=== PATIENT | male | born 1940 | race Caucasian/White ===

== ENCOUNTER 2017-02-21 12:23 | Inpatient (IN) | payer OTHER, MEDICARE ==
[2017-02-21] MEDS ORDERED: Sodium Chloride 0.9% 1,000 ML IV ONE (12:40)
--- NOTE | 2017-02-21 12:46 | ED Physician Chart ---
ED Chief Complaint/HPI - Patient Information Date Seen:: 02/21/17 Time Seen:: 12:30 Chief Complaint:: Fever History of Present Illness:: onset x 2 days of fever, cough, and congestion; no report of H/As, neck pain, C/ P, SOB, Abd. Pain, A/N/V/D/c, chills, or urinary s/s Allergies:: Allergies Allergy/AdvReac Type Severity Reaction Status Date / Time No Known Allergies Allergy Verified 02/21/17 12:39 Historian:: Patient, EMS Review:: Nurse's Note Reviewed, EMS run form Reviewed, Transfer documents Reviewed ED Review of Systems - Review of Systems General/Constitutional: Fever, No chills, No weight loss, No weakness, No diaphoresis, No edema, No loss of appetite Skin: No skin lesions, No rash, No bruising Head: No headache, No light-headedness Eyes: No loss of vision, No pain, No diplopia ENT: No earache, No nasal drainage, No sore throat, No tinnitus Neck: No neck pain, No swelling, No thyromegaly, No stiffness, No mass noted Cardio Vascular: No chest pain, No palpitations, No PND, No orthopnea, No edema Pulmonary: No SOB, Cough, No sputum, No wheezing GI: No nausea, No vomiting, No diarrhea, No pain, No melena, No hematochezia, No constipation, No hematemesis G/U: No dysuria, No frequency, No hematuria Musculoskeletal: No bone or joint pain, No back pain, No muscle pain Endocrine: Polyuria, Polydipsia Psychiatric: No prior psych history, No depression, No anxiety, No suicidal ideation, No homicidal ideation, No auditory hallucination, No visual hallucination Hematopoietic: No bruising, No lymphadenopathy Allergic/Immuno: No urticaria, No angioedema Neurological: No syncope, No focal symptoms, No weakness, No paresthesia, No headache, No seizure, No dizziness, No confusion, No vertigo ED Past Medical History - Past Medical History Obtainable: Yes Past Medical History: HTN, DM, Dyslipidemia, Dementia Family History: Diabetes Melitus, HTN Social History: Non Smoker, No Alcohol, No Drug Use, Single, Care Facility Surgical History: None Psychiatricy History: Dementia Medication: Reviewed ED Physical Exam - Physical Examination General/Constitutional: Awake, Well-developed, well-nourished, Alert, No distress, GCS 15, Non-toxic appearing, Ambulatory Head: Atraumatic Eyes: Lids, conjuctiva normal, PERRL, EOMI Skin: Nl inspection, No rash, No skin lesions, No ecchymosis, Well hydrated, No lymphadenopathy ENMT: External ears, nose nl, TM canals nl, Nasal exam nl, Lips, teeth, gums nl , Oropharynx nl, Tonsils nl Neck: Nontender, Full ROM w/o pain, No JVD, No nuchal rigidity, No bruit, No mass, No stridor Respiratory: Nl effort/Exclusion, Clear to Auscultation, No Wheeze/Rhonchi/Rales Cardio Vascular: RRR, No murmur, gallop, rubs, NL S1 S2, Carotid/Femoral/Distal pulses equal bilaterally GI: No tenderness/rebounding/guarding, No organomegaly, No hernia, Normal BS's, Nondistended, No mass/bruits, No McBurney tenderness : No CVA tenderness Extremities: No tenderness or effusion, Full ROM, normal strength in all extremities, No edema, Normal digits & nails Neuro/Psych: Alert/oriented, DTR's symmetric, Normal sensory exam, Normal motor strength, Judgement/insight normal, Mood normal, Normal gait, No focal deficits Misc: Normal back, No paraspinal tenderness ED Labs/Radiology/EKG Results - Lab Results Comments:: unremarkablr - Radiology Results Comments:: NAD - EKG Interpretations EKG Time:: 12:45 Rate & Rhythm: 85; NSR Comments:: non-specific st-t changes ED Septic Shock - . Is Septic Shock (SBP<90, OR Lactate>4 mmol\L) present?: No ED Reassessment (Disposition) - Reassessment Reassessment Condition:: Improved - Diagnosis Diagnosis:: Fever; Cough/Congestion; Bronchitis/PNA; Sepsis - Aftercare/Follow up Instructions Aftercare/Follow-Up Instructions:: Counseled pt regarding lab results/diagnosis & need follow up, Counseled pt & family regarding lab results/diagnosis & need follow up - Patient Disposition Discharge/Transfer:: Acute Care w/in this hosp Accepting Physician:: Dr. Austin Time Called:: 1600 Time Responded:: 16:00 Admitted to:: Med/Surg Spoke to:: Dr. Austin Admitting Medical Physician:: Dr. Austin Condition at Disposition:: Stable, Improved
[2017-02-21 13:07] LABS: % BASOPHILS 0.8 % (0.0-2.0); % NEUTROPHILS 65.2 % (40.0-80.0); HEMATOCRIT 35.7 % (41.0-60); HEMOGLOBIN 11.7 gm/dL (12-16); MEAN CELL VOLUME 90.6 fl (80-99); MEAN CORPUSCULAR HEMOGLOBIN 29.6 pg (27.0-31.0); MEAN CORPUSCULAR HGB CONC 32.7 pg (28.0-36.0); NEUTROPHILE ABSOLUTE 5.9 Th/cmm (1.8-8.0); PLATELET COUNT 250 Th/cmm (150-400); RED BLOOD COUNT 3.94 Mil/cmm (3.80-5.80); RED CELL DISTRIBUTION WIDTH 12.8 % (11.5-20.0); WHITE BLOOD COUNT 9.1 Th/cmm (4.8-10.8)
[2017-02-21 13:22] LABS: INR 1.14 (0.5-1.4)
[2017-02-21 13:27] LABS: ALB/GLOB RATIO 0.9 (1.0-1.8); ALKALINE PHOSPHATASE 62 U/L (34-104); ANION GAP 10.1 (7.0-16.0); BILIRUBIN,TOTAL 0.4 mg/dL (0.3-1.0); BUN - UREA NITROGEN 28 mg/dL (7-25); BUN/CREATININE RATIO 25.5; CALCIUM SERUM 9.4 mg/dL (8.6-10.3); CARBON DIOXIDE 27.5 mEq/L (21.0-31.0); CHLORIDE 100 mEq/L (98-107); CHOLESTEROL 122 mg/dL (<200); CREATININE - SERUM 1.1 mg/dL (0.7-1.3); GLUCOSE 203 mg/dL (70-105); POTASSIUM SERUM 3.6 mEq/L (3.5-5.1); SGOT 19 U/L (13-39); SGPT/ALT 14 U/L (7-52); SODIUM SERUM 134 mEq/L (136-145); TRIGLYCERIDES 100 mg/dL (<150)
--- NOTE | 2017-02-21 13:41 | Diagnostic Imaging Report ---
Portable chest x-ray HISTORY: Pain There is a poor inspiration. The heart appears enlarged. Atherosclerotic calcination seen in the aorta. No acute focal pulmonary parenchymal processes. Question small bilateral pleural effusions. Surgical suture material noted over the mid chest. IMPRESSION: 1. No definite acute focal pulmonary parenchymal processes 2. Cardiomegaly with atherosclerotic vascular changes 3. Question small bilateral pleural effusions 4. Surgical changes
[2017-02-21] MEDS ORDERED: Levofloxacin 500mg/100mL 500 MG/100 ML BAG IV ONE ×2 (14:14→15:23)
[2017-02-21] MEDS: INSULIN ASPART SLIDING SCALE 100 UNITS/ML UNIT SUBQ SCH (22:24)
[2017-02-22 06:33] LABS: % BASOPHILS 0.7 % (0.0-2.0); % EOSINOPHILS 5.1 % (0.0-5.0); % LYMPHOCYTES 24.8 % (20.0-50.0); % MONOCYTES 11.4 % (2.0-10.0); HEMOGLOBIN 10.3 gm/dL (12-16); MEAN CELL VOLUME 89.8 fl (80-99); MEAN CORPUSCULAR HEMOGLOBIN 30.3 pg (27.0-31.0); MEAN CORPUSCULAR HGB CONC 33.7 pg (28.0-36.0); MEAN PLATELET VOLUME 10.3 fl; NEUTROPHILE ABSOLUTE 4.3 Th/cmm (1.8-8.0); PLATELET COUNT 201 Th/cmm (150-400); RED BLOOD COUNT 3.39 Mil/cmm (3.80-5.80); RED CELL DISTRIBUTION WIDTH 13.1 % (11.5-20.0); WHITE BLOOD COUNT 7.4 Th/cmm (4.8-10.8)
[2017-02-22 06:35] LABS: HEMATOCRIT 30.4 % (41.0-60)
[2017-02-22] MEDS: INSULIN ASPART SLIDING SCALE 100 UNITS/ML UNIT SUBQ SCH ×3 (06:36→17:19)
[2017-02-22 06:55] LABS: ALB/GLOB RATIO 0.9 (1.0-1.8); ALKALINE PHOSPHATASE 47 U/L (34-104); ANION GAP 7.4 (7.0-16.0); BILIRUBIN,TOTAL 0.4 mg/dL (0.3-1.0); BUN - UREA NITROGEN 25 mg/dL (7-25); CALCIUM SERUM 8.7 mg/dL (8.6-10.3); CARBON DIOXIDE 29.1 mEq/L (21.0-31.0); CHLORIDE 103 mEq/L (98-107); POTASSIUM SERUM 3.5 mEq/L (3.5-5.1); SGOT 15 U/L (13-39); SGPT/ALT 12 U/L (7-52); SODIUM SERUM 136 mEq/L (136-145)
[2017-02-22 07:00] LABS: GLUCOSE 125 mg/dL (70-105)
--- NOTE | 2017-02-22 07:08 | History and Physical ---
History of Present Illness - HPI Chief Complaint: fever HPI: 76 y/o male who presents to [facility] ER for 2 day history of fever, cough, and congestion. Patient denies any H/A's, neck pain, chest pain, shortness of breath, denies nausea, vomiting, diarrhea, constipation or urinary symptoms. Patient has a history of diabetes mellitus, congestive heart failure, hyperlipidemia. Has a history of bladder and bowel incontinence. He is a resident from [facility]. While in the ER patient had routine labwork Na 136 K 3.5 BUN/Cr 25/1.0 WBC 7.4K H/H 10.3/30.4 platelets 201K Vital Signs: Last Vital Signs Temp 98.7 F 02/22/17 04:38 Pulse 78 02/22/17 04:38 Resp 18 02/22/17 04:38 BP 130/59 02/22/17 04:38 Pulse Ox 93 02/22/17 04:38 Past Medical History Cardiovascular: Report: CHF, HTN Pulmonary: Report: Pneumonia HAM SMOKER: Report: No Pertinent Hx GI: Report: No Pertinent Hx Psych: Report: No Pertinent Hx Musculoskeletal: Report: No Pertinent Hx Rheumatologic: Report: No pertinent Hx Infectious Disease: Report: No Pertinent Hx Renal/: Report: No Pertinent Hx, Urinary Incontinence Endocrine: Report: Diabetes Dermatology: Report: No Pertinent Hx - Past Surgical History Past Surgical History: No pertinent Hx Family Medical History - Family Member Mother History Unknown: Yes Name:: TYSHAWN CLINTON Ethnicity: Non- Living Status: Hx Family Cancer: No Hx Family Coronary Artery Disease: No Hx Family Congestive Heart Failure: No Hx Family Hypertension: No Hx Family Stroke: No Hx Family Diabetes: No Hx Family Seizures: No Hx Family Dementia: No Hx Family AIDS: No Hx Family HIV: No Hx Family COPD: No Hx Family Hepatitis: No Hx Family Psychiatric Problems: No Hx Family Tuberculosis: No Other Medical History: NATURAL CAUSES Social History Smoke: No Alcohol: None Drugs: None Lives: Prison - Medications Home Medications: Home Medication Medication Instructions Recorded Type Carvedilol [Coreg] 6.25 mg PO BID 02/21/17 History Metformin HCl [Fortamet] 1,000 mg PO BID 02/21/17 History Pioglitazone HCl [Actos] 45 mg PO DAILY 02/21/17 History Simvastatin [Zocor] 10 mg PO HS 02/21/17 History - Allergies Allergies/Adverse Reactions: Allergies Allergy/AdvReac Type Severity Reaction Status Date / Time No Known Allergies Allergy Verified 02/21/17 12:39 Review of Systems - Review of Systems Constitutional: Report: No Significant Eyes: Report: No Significant ENT: Report: No Significant Respiratory: Report: Cough Cardiovascular: Report: Other (SOB) Gastrointestinal: Report: Other (stool incontinence) Genitourinary: Report: Incontinence Musculoskeletal: Report: No Significant Skin: Report: No Significant Neurological: Report: No Significant Physical Exam - Physical Exam HEENT: Report: Ears Nose Throat within normal limits, Pharnyx within normal limits Neck: Report: Within normal limits Cardiovascular Systems: Report: +s1/s2 noted, Regular, Rate and Rhythm Respiratory: Report: Other (decrease breath sounds) Abdomen: Report: Non-tender to palpation Neuro/Psych: Report: Mood affect is within normal limits - Lab Results All Lab Results last 24 hours: Laboratory Results - last 24 hr 02/21/17 02/21/17 02/22/17 18:02 22:04 05:40 WBC 7.4 RBC 3.39 L Hgb 10.3 L Hct 30.4 L D MCV 89.8 MCH 30.3 MCHC Differential 33.7 RDW 13.1 Plt Count 201 MPV 10.3 Neutrophils % 58.0 Lymphocytes % 24.8 Monocytes % 11.4 H Eosinophils % 5.1 H Basophils % 0.7 Sodium Potassium Chloride Carbon Dioxide Anion Gap BUN Creatinine Est GFR ( Amer) Est GFR (Non-Af Amer) BUN/Creatinine Ratio Glucose POC Glucose 127 H 138 H Calcium Total Bilirubin AST ALT Alkaline Phosphatase Total Protein Albumin Globulin Albumin/Globulin Ratio 02/22/17 02/22/17 05:40 05:42 WBC RBC Hgb Hct MCV MCH MCHC Differential RDW Plt Count MPV Neutrophils % Lymphocytes % Monocytes % Eosinophils % Basophils % Sodium 136 Potassium 3.5 Chloride 103 Carbon Dioxide 29.1 Anion Gap 7.4 BUN 25 Creatinine 1.0 Est GFR ( Amer) TNP Est GFR (Non-Af Amer) TNP BUN/Creatinine Ratio 25.0 Glucose 125 H D POC Glucose 119 H Calcium 8.7 Total Bilirubin 0.4 AST 15 ALT 12 Alkaline Phosphatase 47 Total Protein 6.2 Albumin 3.0 L Globulin 3.2 Albumin/Globulin Ratio 0.9 L - Assessment Assessment: Current Active Problems Problem Status Onset COUGH WITH CONGESTION AND FEVER Acute prerenal azotemia pneumonia hyponatremia congestive heart failure diabetes mellitus sepsis vs urosepsis - Plan Plan: continue levofloxacin repeat chest xray pulmonary consult cardiology consult
[2017-02-22] MEDS ORDERED: 0.9% NS w/20 mEq KCL 1,000 ML IV SCH (07:30)
[2017-02-22] MEDS ORDERED: Levofloxacin 500mg/100mL 500 MG/100 ML BAG IV SCH (14:00)
[2017-02-22] MEDS ORDERED: Albuterol/Ipratropium Neb 3 ML AERS HHN SCH (15:00)
[2017-02-22 17:10] LABS: BE(B) 4.4 mEq/L (-3.0-3.0); HCO3 28.3 mEq/L (20.0-26.0); pH 7.47 (7.35-7.45)
[2017-02-22 17:11] LABS: ABG SOURCE Arterial; ALLEN TEST Positive; CRITICAL VALUES REPORTED BY DM
[2017-02-22] MEDS ORDERED: Budesonide 0.5 Mg/2 mL Ud HHN SCH (19:00)
--- NOTE | 2017-02-23 00:47 | Consultation ---
DATE OF CONSULTATION: 02/22/2017 PATIENT OF: Jose Avitia D.O. HISTORY OF PRESENT ILLNESS: This 76-year-old male patient who was brought to [facility] with shortness of breath, cough with expectoration. The patient was found to have congestive heart failure and patient is admitted. PAST MEDICAL HISTORY: The patient has a history of congestive heart failure, hypertension, hyperlipidemia, diabetes mellitus type 2, bladder and stool incontinence. FAMILY HISTORY: Unremarkable. SOCIAL HISTORY: No history of smoking, alcohol abuse. ALLERGIES: No known allergies. PHYSICAL EXAMINATION: VITAL SIGNS: Blood pressure 136/80, pulse 70, respirations 20. HEAD: Normocephalic. No lumps or bumps. EYES: Pupils equal, reactive to light. Fundi show AV nicking, sclerae white, conjunctivae pink. NECK: Carotid 2+. Normal upstroke. JVD flat. Thyroid not palpable. Lymph nodes not palpable. CHEST: Shows increased AP diameter. No kyphosis, scoliosis. LUNGS: Bilateral bronchovesicular breath sounds. Occasional wheeze. No rales. HEART: PMI fifth intercostal space with lateral to midclavicular line. S1, S2, S3, S4. Systolic murmur, grade 2/6, lower left sternal border without radiation. ABDOMEN: Soft. Liver, spleen not palpable. No organomegaly. Bowel sounds active. NEUROLOGIC: Unremarkable. EXTREMITIES: Peripheral pulses 2+. No pedal edema. CLINICAL IMPRESSION: Congestive heart failure, diastolic dysfunction, chronic hypertension, hyperlipidemia, diabetes mellitus type 2, bladder and stool incontinence. PLAN: We will get troponin level, echocardiogram, EKG and monitor the patient. Will start the patient on diuretics. JOB# [id number]
--- NOTE | 2017-02-23 06:51 | Consultation ---
DATE OF CONSULTATION: 02/22/2017 PULMONARY AND SLEEP MEDICINE CONSULTATION REASON FOR CONSULTATION: Help the patient with shortness of breath. CONSULT NOTE: This is a 76-year-old gentleman who basically lives in a board and care, was presented with two days history of fever, cough and chest congestion with some more sputum production, though could not see any sputum. Subsequently as the patient was quite symptomatic, the patient was seen in the Emergency Room, was admitted for further care and necessary treatment. The patient denies of any pleuritic chest pain. Denies of any hemoptysis. Denies of swelling of the legs. He is not too much mobile otherwise and has a history of previous multiple cardiac problems and diabetes mellitus. PAST MEDICAL HISTORY: History of coronary artery disease, history of congestive heart failure, history of hypertension, history of diabetes mellitus, and history of suspect obstructive sleep apnea syndrome. The patient lives in current boarding care. CURRENT MEDICATION: Carvedilol, metformin, Actos, and Zocor. SMOKING HISTORY: Nil. ALLERGIC HISTORY: Nil. PHYSICAL FINDINGS: GENERAL: This is an elderly looking gentleman, awake, not in any respiratory distress, etc. VITAL SIGNS: The patient's recorded vitals: Temperature is 98.8, blood pressure is 130/59, respiration rate is 18-20, saturation is 96 on room air. HEENT: Examination of the head is essentially unremarkable. Pupils appear to be equal and reacting to light. Conjunctivae are slightly pallor. Oral cavity shows fair dental hygiene with small oropharyngeal opening. NECK: No nodes in the neck could be palpated. Neck size is short. CHEST: Shows diminished air entry with occasional rhonchi. HEART: Regular. ABDOMEN: Soft, nontender. EXTREMITIES: Slightly atrophic, but otherwise unremarkable. Good peripheral pulsations. LABORATORY AND DIAGNOSTIC DATA: The patient's white count is 9.1, hemoglobin 11.7. Electrolytes are okay with BUN of 28 and glucose is 207 and hemoglobin A1c is 7.3 and BNP is 498 and other lab studies are essentially unremarkable. Chest x-ray shows some haziness at the bases with some pleural base reaction with previous clipping from the coronary bypass surgery. IMPRESSION: 1. Acute tracheobronchitis, possibly viral. 2. Underlying suspect obstructive sleep apnea syndrome. 3. Status post coronary artery disease with history of diabetes mellitus with metabolic syndrome. PLANS AND SUGGESTIONS: We will give aggressive inhalation treatment. We will go ahead and empirically put him on a BiPAP and continue rest of other treatment and repeat chest x-ray in the standing position, repeat need for oxygenation and see how he does and go from there. JOB# [id number]
--- NOTE | 2017-02-23 07:04 | Diagnostic Imaging Report ---
Exam: Portable chest x-ray HISTORY: Shortness of breath. Findings: Portable examination of chest at 1549 hours reviewed no prior studies available comparison. The study demonstrates multiple metallic sutures status post transsternal thoracotomy. There is evidence of atelectatic change in right base with blunting right costophrenic angle which might represent small pleural effusion versus pleural thickening. Mild congestion cannot be excluded. Bony thorax intact. IMPRESSION: Questionable mild congestion. Right basilar atelectasis question of small effusion. Follow-up dictation recommended
--- NOTE | 2017-02-28 23:10 | Discharge Summary ---
DATE OF DISCHARGE: 02/22/2017 PRELIMINARY DIAGNOSES: 1. Prerenal azotemia. 2. Pneumonia. 3. Hyponatremia. 4. Congestive heart failure. 5. Diabetes mellitus. 6. Sepsis versus urosepsis. DISCHARGE DIAGNOSES: 1. Prerenal azotemia. 2. Pneumonia. 3. Hyponatremia. 4. Congestive heart failure. 5. Diabetes mellitus. 6. Sepsis versus urosepsis. BRIEF HISTORY OF PRESENT ILLNESS: This is a 76-year-old male who presents to [facility] ER with 2-day history of fever, cough, and congestion. Denies any headaches, neck pain, chest pain, or shortness of breath. Denies any nausea, vomiting, diarrhea, constipation, or urinary symptoms. The patient has a history of diabetes mellitus, congestive heart failure, and hyperlipidemia. He has also history of bladder and bowel incontinence. He is a resident from ____. While in the ER, the patient had some routine lab work that showed sodium 136, potassium 3.5, BUN 25, and creatinine 1.0. WBC of 7.4, hemoglobin 10.3, hematocrit 30.4, and platelets 201. The patient was subsequently admitted for further evaluation and treatment. HOSPITAL COURSE: The patient improved during his hospital stay, had been seen and evaluated by Cardiology. Please see dictated report. He was also seen by Pulmonary. Please see dictated report. The patient was subsequently transferred back to the [facility] facility to continue his current medications. The patient was given a course of Levaquin 500 mg once daily for 7 days. The patient was to follow up with his primary care physician. [facility]# [id number]
== END 2017-02-22 17:35 | disposition home or self-care (01) | DRG 871 ==
LOC: ER 12:23 → MSI 16:12
PROVIDERS: ADMIT Family Medicine; ATTEND Family Medicine
DX: A41.9 Sepsis, unspecified organism (principal); J18.9 Pneumonia, unspecified organism; I11.0 Hypertensive heart disease with heart failure; E88.81 Metabolic syndrome and other insulin resistance; I50.32 Chronic diastolic (congestive) heart failure; E11.9 Type 2 diabetes mellitus without complications; E87.1 Hypo-osmolality and hyponatremia; J20.8 Acute bronchitis due to other specified organisms; I25.10 Atherosclerotic heart disease of native coronary artery without angina pectoris; F03.90 Unspecified dementia, unspecified severity, without behavioral disturbance, psychotic disturbance, mood disturbance, and anxiety; E78.5 Hyperlipidemia, unspecified; Z83.3 Family history of diabetes mellitus; Z82.49 Family history of ischemic heart disease and other diseases of the circulatory system; Z79.84 Long term (current) use of oral hypoglycemic drugs
CPT/HCPCS: 36415-UA; 36600-90; 71010-TC; 80053-TC; 80061-TC; 82550-TC; 82803-TC; 82948-90; 83036-90; 83605; 83880-TC; 84443-TC; 84484-TC; 85025-TC; 85610-TC; 85730-TC; 93005; 94760; J1815; J1956; J3480; J7030; Z7610